=== PATIENT | male | born 2000 | race Caucasian/White ===

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

== ENCOUNTER 2018-03-07 21:56 | Emergency (ER) | payer MEDICAID ==
--- NOTE | 2018-03-07 22:05 | EDM.PDOC ---
ED HPI GENERAL MEDICAL PROBLEM - General Chief Complaint: Abdominal Pain Stated Complaint: PT VOMITING Time Seen by Provider: 03/07/18 21:58 - History of Present Illness INITIAL COMMENTS - FREE TEXT/NARRATIVE: HISTORY AND PHYSICAL: History of present illness: The patient is a 17-year-old male with a history of congenital adrenal hyperplasia for which he takes chronic steroids and presents to the ED with a 2 day history of diffuse abdominal pain intractable vomiting and decreased stool output. The patient says he did not eat anything new and has no ill contacts and initially had diffuse abdominal pain not localized right or left which subsequently resulted in intractable vomiting. He is telling me that he is able to keep his steroid pills down but only sips of water here and there. He has not eaten much in the last 2 days. He is making urine but less than usual. He has no fevers chills flank pain chest pain shortness of breath or upper respiratory symptoms. She says he feels an acid-like sensation in his stomach and mouth The patient had a similar presentation in August 2017 requiring an overnight observation for IV fluids and electrolyte management and IV steroids. According to that note in the computer the patient has had several prior episodes for similar episodes of vomiting. 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 The patient has no GI or surgical history Review of systems: As per history of present illness and below otherwise all systems reviewed and negative. Past medical history: As per history of present illness and as reviewed below otherwise noncontributory. Surgical history: As per history of present illness and as reviewed below otherwise noncontributory. Social history: No reported history of drug or alcohol abuse. Family history: As per history of present illness and as reviewed below otherwise noncontributory. Physical exam: General: Well-developed well-nourished man who is nontoxic and vital signs are noted by me. There is a strong smell of ketones on his breath HEENT: Atraumatic, normocephalic, pupils reactive, negative for conjunctival pallor or scleral icterus, mucous membranes dry, throat clear, neck supple, nontender, trachea midline. Lungs: Clear to auscultation, breath sounds equal bilaterally, chest nontender. Heart: S1S2, regular, negative for clicks, rubs, or JVD. Abdomen: Soft, nondistended, bowel sounds are hypoactive and there is some diffuse nonspecific tenderness on deep palpation throughout the entire abdomen without localization right or left upper or lower. There is no rebound or guarding. Negative for masses or hepatosplenomegaly. Pelvis: Stable nontender. Genitourinary: Deferred. Rectal: Deferred. Extremities: Atraumatic, negative for cords or calf pain. Neurovascular unremarkable. Neuro: Awake, alert, oriented. Cranial nerves II through XII unremarkable. Cerebellum unremarkable. Motor and sensory unremarkable throughout. Exam nonfocal. Diagnostics: CBC CMP amylase lipase UA abdominal x-rays Therapeutics: IV fluids Zofran Toradol Protonix hydrocortisone Patient is feeling much improved and is taking ice chips as well as a popsicle without any vomiting since arrival. Lab is having difficulty obtaining amylase results but I will follow up those results and recontact the patient with any abnormalities. The patient is currently finishing a second liter of IV fluids and I feel that he is stable for discharge home with Zofran per [facility]. He somewhat hesitant to go home but I reassured him that as long as he is not vomiting and continues to take by mouth fluids and small bites of food he is stable to go home. Cautioned him on reasons to return to the ED as he is currently in the improvement phase Impression: Nausea and vomiting with dehydration, improving, with history of congenital adrenal hyperplasia and on chronic steroid therapy Definitive disposition and diagnosis as appropriate pending reevaluation and review of above. Abdomen Pain Score (Numeric/FACES): 6 - Related Data Allergies Allergy/AdvReac Type Severity Reaction Status Date / Time No Known Allergies Allergy Verified 03/07/18 22:08 Home Meds: Home Meds Fludrocortisone [Florinef] 0.1 mg PO DAILY 09/17/17 [History] Hydrocortisone 15 mg PO TID 09/17/17 [History] Past Medical History Genitourinary History: Reports: Other (See Below) Other Genitourinary History: Congenital adrenal hyperplasia Endocrine/Metabolic History: Reports: Other (See Below) Other Endocrine/Metabolic History: Congenital adrenal hyperplasia Dermatologic History: Reports: Other (See Below) Other Dermatologic History: redness on cheeks Social & Family History - Family History Family Medical History: Noncontributory Endocrine/Metabolic: Reports: Other (See Below) Other Endocrine/Metabolic Family History: Congenital adrenal hyperplasia - Caffeine Use Caffeine Use: Reports: Tea ED ROS GENERAL - Review of Systems Review Of Systems: ROS reveals no pertinent complaints other than HPI. ED EXAM, GENERAL - Physical Exam Exam: See Below (See dictation) Course - Vital Signs Last Recorded V/S: Last Vital Signs Temp 36.3 C 03/07/18 22:08 Pulse 110 H 03/07/18 22:08 Resp 18 03/07/18 22:08 BP 127/80 03/07/18 22:08 Pulse Ox 98 03/07/18 22:08 - Orders/Labs/Meds Orders: Active Orders 24 hr Category Date Time Status Abdomen 2V AP Flat Upright [CR] Stat Exams 03/07/18 22:10 Taken AMYLASE [CHEM] Stat Lab 03/07/18 22:15 Results COMPREHENSIVE METABOLIC PN,CMP [CHEM] Stat Lab 03/07/18 22:15 Results LIPASE [CHEM] Stat Lab 03/07/18 22:15 Results UA W/MICROSCOPIC [URIN] Stat Lab 03/07/18 23:45 Ordered Sodium Chloride 0.9% [Normal Saline] 1,000 ml Med 03/07/18 23:29 Active IV STAT Sodium Chloride 0.9% [Saline Flush] Med 03/07/18 22:10 Active 10 ml FLUSH ASDIRECTED PRN Sodium Chloride 0.9% [Saline Flush] Med 03/07/18 22:10 Active 2.5 ml FLUSH ASDIRECTED PRN Saline Lock Insert [OM.PC] Stat Oth 03/07/18 22:09 Ordered Medication Orders Sodium Chloride (Normal Saline) 1,000 mls @ 999 mls/hr IV STAT ONE Stop: 03/08/18 00:29 Last Admin: 03/07/18 23:42 Dose: 999 mls/hr Sodium Chloride (Saline Flush) 10 ml FLUSH ASDIRECTED PRN PRN Reason: Keep Vein Open Last Admin: 03/07/18 22:32 Dose: 10 ml Sodium Chloride (Saline Flush) 2.5 ml FLUSH ASDIRECTED PRN PRN Reason: Keep Vein Open Last Admin: 03/07/18 22:32 Dose: 2.5 ml Labs: Laboratory Tests 03/07/18 03/07/18 03/07/18 Range/Units 22:15 22:15 22:15 WBC 13.04 H (4.0-11.0) K/uL RBC 6.11 H (4.50-5.90) M/uL Hgb 17.9 H (13.0-17.0) g/dL Hct 50.0 (38.0-50.0) % MCV 81.8 (80.0-98.0) fL MCH 29.3 (27.0-32.0) pg MCHC 35.8 (31.0-37.0) g/dL RDW Std Deviation 40.3 (28.0-62.0) fl RDW Coeff of Felix 14 (11.0-15.0) % Plt Count 251 (150-400) K/uL MPV 11.70 (7.40-12.00) fL Neut % (Auto) 67.9 (48.0-80.0) % Lymph % (Auto) 25.3 (16.0-40.0) % [place] % (Auto) 6.3 (0.0-15.0) % Eos % (Auto) 0.3 (0.0-7.0) % Baso % (Auto) 0.2 (0.0-1.5) % Neut # (Auto) 8.9 H (1.4-5.7) K/uL Lymph # (Auto) 3.3 H (0.6-2.4) K/uL [place] # (Auto) 0.8 (0.0-0.8) K/uL Eos # (Auto) 0.0 (0.0-0.7) K/uL Baso # (Auto) 0.0 (0.0-0.1) K/uL Nucleated RBC % 0.0 /100WBC Nucleated RBCs # 0 K/uL Sodium 136 (136-148) mmol/L Potassium 4.2 (3.5-5.1) mmol/L Chloride 99 (98-107) mmol/L Carbon Dioxide 15.0 L (21.0-32.0) mmol/L BUN 15 (7.0-18.0) mg/dL Creatinine 1.1 (0.8-1.3) mg/dL Est Cr Clr Drug Dosing 100.99 mL/min Estimated GFR (MDRD) > 60.0 ml/min Glucose 88 (74-106) mg/dL Calcium 10.4 H (8.5-10.1) mg/dL Total Bilirubin 1.3 H (0.2-1.0) mg/dL AST 31 (15-37) IU/L ALT 54 (14-63) IU/L Alkaline Phosphatase 90 (46-116) U/L Total Protein 9.1 H (6.4-8.2) g/dL Albumin 5.0 (3.4-5.0) g/dL Globulin 4.1 H (2.0-3.5) g/dL Albumin/Globulin Ratio 1.2 L (1.3-2.8) Lipase 112 (73-393) U/L Urine Color Urine Appearance Urine pH (5.0-8.0) Ur Specific [place] (1.001-1.035) Urine Protein (NEGATIVE) mg/dL Urine Glucose (UA) (NEGATIVE) mg/dL Urine Ketones (NEGATIVE) mg/dL Urine Occult Blood (NEGATIVE) Urine Nitrite (NEGATIVE) Urine Bilirubin (NEGATIVE) Urine Ictotest Urine Urobilinogen (<2.0) EU/dL Ur Leukocyte Esterase (NEGATIVE) Urine RBC (0-2/HPF) Urine WBC (0-5/HPF) Ur Epithelial Cells (NONE-FEW) Urine Bacteria (NEGATIVE) Ketones NEGATIVE (NEG) 03/07/18 Range/Units 23:45 WBC (4.0-11.0) K/uL RBC (4.50-5.90) M/uL Hgb (13.0-17.0) g/dL Hct (38.0-50.0) % MCV (80.0-98.0) fL MCH (27.0-32.0) pg MCHC (31.0-37.0) g/dL RDW Std Deviation (28.0-62.0) fl RDW Coeff of Felix (11.0-15.0) % Plt Count (150-400) K/uL MPV (7.40-12.00) fL Neut % (Auto) (48.0-80.0) % Lymph % (Auto) (16.0-40.0) % [place] % (Auto) (0.0-15.0) % Eos % (Auto) (0.0-7.0) % Baso % (Auto) (0.0-1.5) % Neut # (Auto) (1.4-5.7) K/uL Lymph # (Auto) (0.6-2.4) K/uL [place] # (Auto) (0.0-0.8) K/uL Eos # (Auto) (0.0-0.7) K/uL Baso # (Auto) (0.0-0.1) K/uL Nucleated RBC % /100WBC Nucleated RBCs # K/uL Sodium (136-148) mmol/L Potassium (3.5-5.1) mmol/L Chloride (98-107) mmol/L Carbon Dioxide (21.0-32.0) mmol/L BUN (7.0-18.0) mg/dL Creatinine (0.8-1.3) mg/dL Est Cr Clr Drug Dosing mL/min Estimated GFR (MDRD) ml/min Glucose (74-106) mg/dL Calcium (8.5-10.1) mg/dL Total Bilirubin (0.2-1.0) mg/dL AST (15-37) IU/L ALT (14-63) IU/L Alkaline Phosphatase (46-116) U/L Total Protein (6.4-8.2) g/dL Albumin (3.4-5.0) g/dL Globulin (2.0-3.5) g/dL Albumin/Globulin Ratio (1.3-2.8) Lipase (73-393) U/L Urine Color YELLOW Urine Appearance CLEAR Urine pH 6.0 (5.0-8.0) Ur Specific [place] >= 1.030 (1.001-1.035) Urine Protein 30 (NEGATIVE) mg/dL Urine Glucose (UA) NEGATIVE (NEGATIVE) mg/dL Urine Ketones >=80 (NEGATIVE) mg/dL Urine Occult Blood NEGATIVE (NEGATIVE) Urine Nitrite NEGATIVE (NEGATIVE) Urine Bilirubin SMALL H (NEGATIVE) Urine Ictotest NEGATIVE Urine Urobilinogen 0.2 (<2.0) EU/dL Ur Leukocyte Esterase NEGATIVE (NEGATIVE) Urine RBC 0-1 (0-2/HPF) Urine WBC 0-1 (0-5/HPF) Ur Epithelial Cells RARE (NONE-FEW) Urine Bacteria RARE (NEGATIVE) Ketones (NEG) Meds: Medications Generic Name Dose Route Start Last Admin Trade Name Freq PRN Reason Stop Dose Admin Sodium Chloride 1,000 mls @ 999 mls/hr 03/07/18 23:29 03/07/18 23:42 Normal Saline IV 03/08/18 00:29 999 mls/hr STAT ONE Administration Sodium Chloride 10 ml 03/07/18 22:10 03/07/18 22:32 Saline Flush FLUSH 10 ml ASDIRECTED PRN Administration Keep Vein Open Sodium Chloride 2.5 ml 03/07/18 22:10 03/07/18 22:32 Saline Flush FLUSH 2.5 ml ASDIRECTED PRN Administration Keep Vein Open Discontinued Medications Generic Name Dose Route Start Last Admin Trade Name Freq PRN Reason Stop Dose Admin Hydrocortisone Sodium Succinate 100 mg 03/07/18 23:29 03/07/18 23:40 Solu-Cortef IVPUSH 03/07/18 23:30 100 mg ONETIME ONE Administration Sodium Chloride 1,000 mls @ 999 mls/hr 03/07/18 22:10 03/07/18 22:32 Normal Saline IV 03/07/18 23:10 999 mls/hr STAT ONE Administration Ketorolac Tromethamine 30 mg 03/07/18 22:10 03/07/18 22:33 Toradol IVPUSH 03/07/18 22:11 30 mg ONETIME ONE Administration Ondansetron HCl 4 mg 03/07/18 22:10 03/07/18 22:33 Zofran IVPUSH 03/07/18 22:11 4 mg ONETIME ONE Administration Pantoprazole Sodium 40 mg 03/07/18 22:10 03/07/18 22:34 Protonix Iv IVPUSH 03/07/18 22:11 40 mg NOW ONE Administration Departure - Departure Time of Disposition: 00:21 Disposition: Home, Self-Care 01 Condition: Good Clinical Impression: Vomiting Qualifiers: Vomiting type: unspecified Vomiting Intractability: non-intractable Nausea presence: with nausea Qualified Code(s): R11.2 - Nausea with vomiting, unspecified - Discharge Information Referrals: PCP,None [Primary Care Provider] - Forms: ED Department Discharge Additional Instructions: The following information is given to patients seen in the emergency department who are being discharged to home. This information is to outline your options for follow-up care. We provide all patients seen in our emergency department with a follow-up referral. The need for follow-up, as well as the timing and circumstances, are variable depending upon the specifics of your emergency department visit. If you don't have a primary care physician on staff, we will provide you with a referral. We always advise you to contact your personal physician following an emergency department visit to inform them of the circumstance of the visit and for follow-up with them and/or the need for any referrals to a consulting specialist. The emergency department will also refer you to a specialist when appropriate. This referral assures that you have the opportunity for followup care with a specialist. All of these measure are taken in an effort to provide you with optimal care, which includes your followup. Under all circumstances we always encourage you to contact your private physician who remains a resource for coordinating your care. When calling for followup care, please make the office aware that this follow-up is from your recent emergency room visit. If for any reason you are refused follow-up, please contact the [facility] emergency department at and ask to speak to the emergency department charge nurse. [facility] Primary care- [place] [address] Please continue to take small sips of fluids such as Gatorade and water popsicles ice chips every couple of minutes continuously bathed her stomach and promote hydration. A small bites of bland food and use Zofran you have been prescribed via [facility] for any nausea or vomiting. Return to ER as needed and as discussed. Please follow-up in our clinic or with your provider in the next 1-2 days - My Orders Last 24 Hours: My Active Orders 03/07/18 22:09 Saline Lock Insert [OM.PC] Stat 03/07/18 22:10 Abdomen 2V AP Flat Upright [CR] Stat Sodium Chloride 0.9% [Saline Flush] 10 ml FLUSH ASDIRECTED PRN Sodium Chloride 0.9% [Saline Flush] 2.5 ml FLUSH ASDIRECTED PRN 03/07/18 22:15 AMYLASE [CHEM] Stat COMPREHENSIVE METABOLIC PN,CMP [CHEM] Stat LIPASE [CHEM] Stat 03/07/18 23:29 Sodium Chloride 0.9% [Normal Saline] 1,000 ml IV STAT 03/07/18 23:45 UA W/MICROSCOPIC [URIN] Stat - Assessment/Plan Last 24 Hours: My Active Orders 03/07/18 22:09 Saline Lock Insert [OM.PC] Stat 03/07/18 22:10 Abdomen 2V AP Flat Upright [CR] Stat Sodium Chloride 0.9% [Saline Flush] 10 ml FLUSH ASDIRECTED PRN Sodium Chloride 0.9% [Saline Flush] 2.5 ml FLUSH ASDIRECTED PRN 03/07/18 22:15 AMYLASE [CHEM] Stat COMPREHENSIVE METABOLIC PN,CMP [CHEM] Stat LIPASE [CHEM] Stat 03/07/18 23:29 Sodium Chloride 0.9% [Normal Saline] 1,000 ml IV STAT 03/07/18 23:45 UA W/MICROSCOPIC [URIN] Stat
[2018-03-07] MEDS ORDERED: Ondansetron 4 MG/2 ML SDV IVPUSH ONE (22:10)
[2018-03-07] MEDS ORDERED: Sodium Chloride 0.9% 1,000 ML IV ONE ×2 (22:10→23:29)
[2018-03-07] MEDS ORDERED: Sodium Chloride 0.9% 2.5 ML Syringe FLUSH PRN (22:10)
[2018-03-07] MEDS ORDERED: Ketorolac 30 MG/ML SDV IVPUSH ONE (22:10)
[2018-03-07] MEDS ORDERED: Pantoprazole 40 MG Vial IVPUSH ONE (22:10)
[2018-03-07] MEDS ORDERED: Sodium Chloride 0.9% 10 ML Syringe FLUSH PRN (22:10)
[2018-03-07 22:55] LABS: CHLORIDE,CL 99 mmol/L (98-107); SODIUM,NA 136 mmol/L (136-148)
[2018-03-07] MEDS ORDERED: Hydrocortisone Sodium Succinate 100 MG/2 ML SDV IVPUSH ONE (23:29)
--- NOTE | 2018-03-08 16:04 | CR ---
EXAM DATE: 03/07/18 PATIENT'S AGE: 17 Patient: BLAKE BUI Facility: [place], [place] Site . Site : 2000 Study: XRay Abdomen [id number]/8/2018 10:52:00 PM Ordering Physician: Doctor Montoya Final Report: INDICATION: General pain TECHNIQUE: Abdomen 4 view COMPARISON: None FINDINGS: Bowel: Nonobstructive bowel gas pattern. Soft tissues: No sign of free air. No sign of soft tissue mass. No suspicious calcifications. Bones: Unremarkable for age. IMPRESSION: Nonobstructive bowel gas pattern. Dictated by John Johns MD @ 03/07/2018 11:24:00 PM Dictated by: John Johns MD @ 03/07/2018 23:28:38 (Electronic Signature) Report Signed by Proxy. [facility]
== END 2018-03-08 00:52 | disposition home or self-care (01) ==
LOC: MW.ED 21:56
DX: E86.0 Dehydration (principal); R11.2 Nausea with vomiting, unspecified; Z86.39 Personal history of other endocrine, nutritional and metabolic disease; Z79.52 Long term (current) use of systemic steroids
CPT/HCPCS: 36415; 74019; 80053; 81001; 82009; 82150; 83690; 85025; 96361; 96374; 96375; 99284; C9113; J1720; J1885; J2405; J7040